=== PATIENT | male | born 1995 | race African-American/Black ===

== ENCOUNTER 2018-09-27 01:20 | Emergency (ER) | payer OTHER, SELFPAY ==
[~2018-09-27] VITALS: Ht 177.8 cm; Wt 90.0 kg
[2018-09-27] MEDS ORDERED: ACETAMINOPHEN 325MG TABLET PO ONE (03:30)
[2018-09-27] MEDS ORDERED: FLUORESCEIN SODIUM 1MG/STRIP BOTHEYE ONE (03:30)
[2018-09-27] MEDS ORDERED: TETRACAINE 0.5% OPHTH DROPS 4ML BOTHEYE ONE (03:30)
[2018-09-27 06:03] VITALS: BP 138/78
== END 2018-09-27 06:15 | disposition home or self-care (01) ==
LOC: ER 01:20
DX: M25.512 Pain in left shoulder (principal); M79.672 Pain in left foot; M79.671 Pain in right foot; H57.10 Ocular pain, unspecified eye; R20.8 Other disturbances of skin sensation; H53.8 Other visual disturbances; F12.10 Cannabis abuse, uncomplicated
CPT/HCPCS: 73030; 73630; 99283; Z7610